=== PATIENT | male | born 1970 | race Caucasian/White ===

== ENCOUNTER 2016-11-15 23:24 | Emergency (ER) | payer SELFPAY ==
[~2016-11-15] VITALS: Ht 182.9 cm; Wt 75.0 kg
[~2016-11-15 23:24] MED LIST: ATENOLOL25 MG PO; CEPHALEXIN500 MG PO; ENALAPRIL5 MG PO; FLEXERIL OR; LIBRIUM10 MG PO; LORTAB 5 OR; LORTAB 7.5 PO; MEDDOSEPAK PO; MULT1 OR; NAPROSYN500 MG OR; NAPROSYN500 MG PO; NO; NO HOME MEDS; OMEPRAZOLE10 MG; OTC SLEEP AID; TRIMOX500 MG PO; ULTRAM50 MG OR; UNKNOWN BP MED; VITAMIN B-1100 M1 PO; [UNRECOGNIZED DRUG - OTHER] OR
[2016-11-16] MEDS ORDERED: ULTRAM50 M1 PO (00:46)
[2016-11-16 00:52] VITALS: BP 138/103
== END 2016-11-16 01:00 | disposition home or self-care (01) | DRG 563 ==
LOC: ED 23:24
PROC: 2W3RX1Z Immobilization of Left Lower Leg using Splint (ICD-10-PCS; principal; 2016-11-15)
DX: S82.55XA Nondisplaced fracture of medial malleolus of left tibia, initial encounter for closed fracture (principal); W22.09XA Striking against other stationary object, initial encounter; Y93.E6 Activity, residential relocation; Y92.89 Other specified places as the place of occurrence of the external cause

== ENCOUNTER 2016-11-19 10:42 | Emergency (ER) | payer SELFPAY ==
[~2016-11-19] VITALS: Ht 182.9 cm; Wt 70.0 kg
[~2016-11-19 10:42] MED LIST changes: +ULTRAM50 M1 PO
[2016-11-19 11:25] VITALS: BP 131/88
== END 2016-11-19 11:26 | disposition home or self-care (01) | DRG 561 ==
LOC: ED 10:42
DX: S82.55XD Nondisplaced fracture of medial malleolus of left tibia, subsequent encounter for closed fracture with routine healing (principal); Z91.19 Patient's noncompliance with other medical treatment and regimen; M25.472 Effusion, left ankle; W22.09XD Striking against other stationary object, subsequent encounter

== ENCOUNTER 2017-06-18 20:26 | Observation (INO) | payer SELFPAY ==
[~2017-06-18] VITALS: Ht 182.9 cm; Wt 75.2 kg
--- NOTE | 2017-06-18 20:45 | NUR ---
PT. AMBULATED TO ROOM 9 WITH C/O MIDSTERNAL CP X 3 DAYS. PT. STATES HE HAS NO PMH OF CAD.
[2017-06-18 21:04] LABS: HEMATOCRIT 43.5 % (39.0-50.0); HEMOGLOBIN 15.7 g/dl (14.0-18.0); IMMATURE GRANULOCYTES 0.3 % (0.0-1.0); MEAN CELL VOLUME 92.9 fL CALC (80.0-100.0); MEAN CORPUSCULAR HGB 33.5 pG CALC (26.0-32.0); MEAN CORPUSCULAR HGB CONC 36.1 g/L CALC (32.0-36.0); NEUT# 8.78 thou/uL (1.82-7.42); RED BLOOD COUNT 4.68 mill/uL (4.70-6.10); RED CELL DISTRI WIDTH 12.3 % (11.5-15.5)
[2017-06-18 21:18] LABS: ALBUMIN 4.9 g/dL (3.2-5.0); ALKALINE PHOSPHATASE 117 u/l (38-126); AMYLASE 67 u/l (30-110); ANION GAP 21 (6-22 (CALC)); BILIRUBIN, TOTAL 0.6 mg/dL (0.0-1.4); BUN 7 mg/dL (9-20); BUN/CREATININE RATIO 11 (12-20 (CALC)); CARBON DIOXIDE 20 mmol/l (22-30); CHLORIDE 103 mmol/l (95-108); CREATININE 0.6 mg/dL (0.7-1.3); GFR > 60 ML/MIN (>=60 (CALC)); GFR FOR AFR.AMER. > 60 ML/MIN (>=60 (CALC)); LIPASE 192 u/l (23-300); POTASSIUM 4.2 mmol/l (3.5-5.1); SGOT/AST 67 u/l (17-59); SGPT/ALT 47 u/l (21-72); SODIUM 140 mmol/l (137-146); TOTAL PROTEIN 7.9 g/dL (6.3-8.2)
--- NOTE | 2017-06-18 21:24 | NUR ---
LAB CALLED AND BAL 437. DR NOTIFIED
[2017-06-18 21:26] LABS: ACT PARTIAL THROMBO TIME 30.5 SECONDS (20.0-32.5); PROTHROMBIN TIME 10.6 SECONDS (9.0-12.5)
[2017-06-18 21:27] LABS: MYOGLOBIN 17 ng/mL (0 - 121)
--- NOTE | 2017-06-18 22:52 | NUR ---
PT RESTING COMFORTABLY AT THIS TIME. NO C/O PAIN OR PRESSURE. AWAITING ADMISSION ORDERS FROM ER
--- NOTE | 2017-06-18 23:23 | NUR ---
REPORT CALLED TO MANUEL RAY FOR ROOM 261.
--- NOTE | 2017-06-18 23:34 | NUR ---
PT BEING READIED FOR TRANSPORT UP TO ROOM. REPORT CALLED TO MANUEL RAY.
[2017-06-18 23:50] VITALS: BP 131/71
--- NOTE | 2017-06-18 23:50 | NUR ---
PT ARRIVED TO UNIT VIA STRETCHER WITH ER STAFF. AMBULATED TO BED INDEPENDENTLY. DENIES PAIN CURRENTLY. RESPIRATIONS EVEN AND UNLABORED. PT ALERT AND ORIENTED. ORIENTED TO ROOM AND CALL LIGHT SYSTEM. PLAN OF CARE DISCUSSED. PT ENCOURAGED TO VERBALIZE CONCERNS. STATES UNDERSTANDING. DECLINE NICOTINE PATCH THAT WAS OFFERED. TREMORS NOTED TO HANDS. SAFETY MEASURES IN PLACE. CALL LIGHT WITHIN REACH.
[2017-06-19 03:46] LABS: URINE BILIRUBIN - DIPSTICK NEGATIVE (NEGATIVE); URINE BLOOD DIPSTICK NEGATIVE (NEGATIVE); URINE CLARITY CLEAR; URINE COLOR YELLOW; URINE GLUCOSE - DIPSTICK NEGATIVE (NEGATIVE); URINE KETONE NEGATIVE (NEGATIVE); URINE LEUK ESTERASE NEGATIVE (NEGATIVE); URINE NITRITE - DIPSTICK NEGATIVE (Negative); URINE PROTEIN - DIPSTICK NEGATIVE (NEG-TRACE); URINE UROBILINOGEN - DIPSTICK 0.2 E.U./dL (0.2)
[2017-06-19 03:52] LABS: BARBITURATES NEGATIVE (NEGATIVE); COCAINE NEGATIVE (NEGATIVE); METHADONE NEGATIVE (NEGATIVE); OXCYCODONE NEGATIVE (NEGATIVE); TETRAHYDROCANNABIONOL NEGATIVE (NEGATIVE); TRICYLIC ANTIDEPRESSANTS NEGATIVE (NEGATIVE)
[2017-06-19 03:55] VITALS: BP 116/67
--- NOTE | 2017-06-19 04:00 | NUR ---
PT ASLEEP AT THIS TIME WITH NO SIGNS OF DISTRESS NOTED. RESPIRATIONS EVEN AND UNLABORED. LIBRIUM GIVEN FOR TREMORS AND SIGNS OF ALCOHOL WITHDRAWL. NO REQUESTS AT THIS TIME. PT INDEPENDENT IN ROOM. SAFETY MEASURES IN PLACE. CALL LIGHT WITHIN REACH.
--- NOTE | 2017-06-19 07:00 | NUR ---
SHIFT CHANGE REPORT FROM MANUEL, PT SLEEPING BUT AROUSES TO VERBAL STIMULI, DENIES PAIN AT THIS TIME BUT STATES HE WANTS A CIGARETTE CRYSTAL AND THAT HE WANTS TO GO HOME. DR TUBBS ROUNDED AND STATED HE WILL SENT PT HOME TODAY, WILL CONTINUE TO MONITOR.
[2017-06-19 08:09] VITALS: BP 141/82
[2017-06-19] MEDS ORDERED: PRILOSEC20 MG/CAP PO (10:25)
[2017-06-19] MEDS ORDERED: LIBRIUM25 M1 PO (10:25)
--- NOTE | 2017-06-19 11:15 | NUR ---
Discharge instructions given. Patient verbalizes understanding of same. Discharged in fair condition via Ambulatory to Home with *Other. All belongings sent with pt.
== END 2017-06-19 11:00 | disposition home or self-care (01) | DRG 313 ==
LOC: ED 20:26 → ED-I 22:53 → ED 23:15 → MS2 23:16
PROVIDERS: Emergency Medicine; ADMIT Internal Medicine; ATTEND Internal Medicine
DX: R07.2 Precordial pain (principal); F10.129 Alcohol abuse with intoxication, unspecified; F17.210 Nicotine dependence, cigarettes, uncomplicated; I10 Essential (primary) hypertension; G25.2 Other specified forms of tremor; Y90.8 Blood alcohol level of 240 mg/100 ml or more
CPT/HCPCS: G0378

== ENCOUNTER 2018-06-03 20:13 | Emergency (ER) | payer SELFPAY ==
[~2018-06-03] VITALS: Ht 182.9 cm; Wt 78.8 kg
[~2018-06-03 20:13] MED LIST changes: +LIBRIUM25 M1 PO; +PRILOSEC20 MG/CAP PO
[2018-06-03] MEDS ORDERED: LISINOPRIL2.5 MG PO (20:29)
[2018-06-03] MEDS ORDERED: BLOOD PRESSURE PILL (20:30)
[2018-06-03 20:44] LABS: HEMATOCRIT 42.9 % (39.0-50.0); HEMOGLOBIN 15.6 g/dl (14.0-18.0); IMMATURE GRANULOCYTES 0.4 % (0.0-5.0); MEAN CELL VOLUME 94.1 fL CALC (80.0-100.0); MEAN CORPUSCULAR HGB 34.2 pG CALC (26.0-32.0); MEAN CORPUSCULAR HGB CONC 36.4 g/L CALC (32.0-36.0); NEUT# 5.52 thou/uL (1.82-7.42); RED BLOOD COUNT 4.56 mill/uL (4.70-6.10); RED CELL DISTRI WIDTH 12.2 % (11.5-15.5)
[2018-06-03 20:57] LABS: ALBUMIN 4.8 g/dL (3.2-5.0); ALKALINE PHOSPHATASE 86 u/l (38-126); BILIRUBIN, TOTAL 1.1 mg/dL (0.0-1.4); BUN 4 mg/dL (9-20); BUN/CREATININE RATIO 7 (12-20 (CALC)); CARBON DIOXIDE 21 mmol/l (22-30); CHLORIDE 95 mmol/l (95-108); CREATININE 0.5 mg/dL (0.7-1.3); GFR > 60 ML/MIN (>=60 (CALC)); GFR FOR AFR.AMER. > 60 ML/MIN (>=60 (CALC)); POTASSIUM 4.2 mmol/l (3.5-5.1); SGOT/AST 64 u/l (17-59); TOTAL PROTEIN 7.9 g/dL (6.3-8.2)
[2018-06-03 21:05] LABS: ANION GAP 19 (6-22 (CALC)); SODIUM 131 mmol/l (137-146)
[2018-06-03] MEDS ORDERED: LISINOPRIL10 M1 PO (21:23)
[2018-06-03] MEDS ORDERED: AMLODIPINE BESY10 MG PO (21:24)
[2018-06-03 21:46] LABS: URINE BILIRUBIN - DIPSTICK NEGATIVE (NEGATIVE); URINE BLOOD DIPSTICK NEGATIVE (NEGATIVE); URINE COLOR YELLOW; URINE GLUCOSE - DIPSTICK NEGATIVE (NEGATIVE); URINE KETONE NEGATIVE (NEGATIVE); URINE LEUK ESTERASE NEGATIVE (NEGATIVE); URINE NITRITE - DIPSTICK NEGATIVE (Negative); URINE PH 6.5 (4.5-8.0); URINE PROTEIN - DIPSTICK NEGATIVE (NEG-TRACE); URINE SPECIFIC GRAVITY <=1.005; URINE UROBILINOGEN - DIPSTICK 0.2 E.U./dL (0.2)
[2018-06-04 00:14] VITALS: BP 140/70
== END 2018-06-04 | disposition left against medical advice (07) | DRG 916 ==
LOC: ED 20:13
PROVIDERS: Emergency Medicine
DX: T78.3XXA Angioneurotic edema, initial encounter (principal); F17.200 Nicotine dependence, unspecified, uncomplicated; Z91.19 Patient's noncompliance with other medical treatment and regimen

== ENCOUNTER 2019-11-20 01:47 | Emergency (ER) | payer SELFPAY ==
[~2019-11-20] VITALS: Ht 182.9 cm; Wt 80.0 kg
[~2019-11-20 01:47] MED LIST changes: +AMLODIPINE BESY10 MG PO; +BLOOD PRESSURE PILL; +LISINOPRIL10 M1 PO; +LISINOPRIL2.5 MG PO
[2019-11-20 02:40] LABS: HEMATOCRIT 40.5 % (39.0-50.0); HEMOGLOBIN 13.9 g/dl (14.0-18.0); IMMATURE GRANULOCYTES 0.2 % (0.0-5.0); MEAN CORPUSCULAR HGB 34.2 pG CALC (26.0-32.0); MEAN CORPUSCULAR HGB CONC 34.3 g/dL CAL (32.0-36.0); NEUT# 3.14 thou/uL (1.82-7.42); RED BLOOD COUNT 4.06 mill/uL (4.70-6.10); RED CELL DISTRI WIDTH 13.6 % (11.5-15.5)
[2019-11-20 02:42] LABS: MEAN CELL VOLUME 99.8 fL CALC (80.0-100.0)
[2019-11-20 02:50] LABS: ALBUMIN 4.5 g/dL (3.2-5.0); ALKALINE PHOSPHATASE 95 u/l (38-126); ANION GAP 14 (6-22 (CALC)); BUN 9 mg/dL (9-20); BUN/CREATININE RATIO 14 (12-20 (CALC)); CARBON DIOXIDE 22 mmol/l (22-30); CHLORIDE 103 mmol/l (95-108); CREATININE 0.6 mg/dL (0.7-1.3); GFR > 60 ML/MIN (>=60 (CALC)); GFR FOR AFR.AMER. > 60 ML/MIN (>=60 (CALC)); POTASSIUM 3.9 mmol/l (3.5-5.1); SODIUM 135 mmol/l (137-146); TOTAL PROTEIN 7.1 g/dL (6.3-8.2)
[2019-11-20 02:56] LABS: BILIRUBIN, TOTAL 0.6 mg/dL (0.0-1.4); SGOT/AST 124 u/l (17-59)
[2019-11-20 02:57] LABS: ETHYL ALCOHOL > 300 mg/dl (0-30)
[2019-11-20 03:13] LABS: URINE BILIRUBIN - DIPSTICK NEGATIVE (NEGATIVE); URINE BLOOD DIPSTICK NEGATIVE (NEGATIVE); URINE COLOR YELLOW; URINE GLUCOSE - DIPSTICK NEGATIVE (NEGATIVE); URINE KETONE TRACE mg/dL (NEGATIVE); URINE LEUK ESTERASE NEGATIVE (NEGATIVE); URINE NITRITE - DIPSTICK NEGATIVE (Negative); URINE PROTEIN - DIPSTICK NEGATIVE (NEG-TRACE); URINE SPECIFIC GRAVITY 1.015; URINE UROBILINOGEN - DIPSTICK 0.2 E.U./dL (0.2)
[2019-11-20 04:15] VITALS: BP 106/72
== END 2019-11-20 04:11 | disposition home or self-care (01) | DRG 93 ==
LOC: ED 01:47
PROVIDERS: Emergency Medicine
DX: R20.2 Paresthesia of skin (principal); F10.129 Alcohol abuse with intoxication, unspecified; I10 Essential (primary) hypertension; F17.210 Nicotine dependence, cigarettes, uncomplicated

== ENCOUNTER 2020-05-04 21:43 | Observation (INO) | payer SELFPAY ==
[~2020-05-04] VITALS: Ht 177.8 cm; Wt 75.0 kg
--- NOTE | 2020-05-04 22:00 | NUR ---
ARRIVED VIA EMS C/O PAIN. NAD. PWD. RESP EASY REG. VSS.
[2020-05-04 22:45] LABS: HEMATOCRIT 43.4 % (39.0-50.0); HEMOGLOBIN 14.9 g/dl (14.0-18.0); IMMATURE GRANULOCYTES 0.3 % (0.0-5.0); MEAN CELL VOLUME 98.6 fL CALC (80.0-100.0); MEAN CORPUSCULAR HGB 33.9 pG CALC (26.0-32.0); MEAN CORPUSCULAR HGB CONC 34.3 g/dL CAL (32.0-36.0); NEUT# 4.8 thou/uL (1.82-7.42); RED BLOOD COUNT 4.4 mill/uL (4.70-6.10); RED CELL DISTRI WIDTH 11.6 % (11.5-15.5)
[2020-05-04] MEDS ORDERED: ANTIDEPRESSANT (22:49)
[2020-05-04] MEDS ORDERED: ANTIHYPERTENSIVE (22:50)
--- NOTE | 2020-05-04 23:00 | NUR ---
Notified MD in regards to PT blood pressure. Agreed to hold nitro. Will continue to monitor. Lyric Mansfield RN
[2020-05-04 23:02] LABS: ALBUMIN 4.4 g/dL (3.2-5.0); ALKALINE PHOSPHATASE 94 u/l (38-126); AMYLASE 81 u/l (30-110); BUN 3 mg/dL (9-20); BUN/CREATININE RATIO 6 (12-20 (CALC)); CHLORIDE 103 mmol/l (95-108); CREATININE 0.5 mg/dL (0.7-1.3); GFR > 60 ML/MIN (>=60 (CALC)); GFR FOR AFR.AMER. > 60 ML/MIN (>=60 (CALC)); LIPASE 171 u/l (23-300); POTASSIUM 4.2 mmol/l (3.5-5.1); SGOT/AST 53 u/l (17-59); SODIUM 139 mmol/l (137-146); TOTAL PROTEIN 7.7 g/dL (6.3-8.2)
[2020-05-04 23:03] LABS: INTERNATIONAL NORMALIZED RATIO 1.2 RATIO (0.7-1.3); PROTHROMBIN TIME 11.5 SECONDS (9.0-12.5)
[2020-05-04 23:04] LABS: ANION GAP 13 (6-22 (CALC)); BILIRUBIN, TOTAL 0.3 mg/dL (0.0-1.4); CARBON DIOXIDE 27 mmol/l (22-30)
[2020-05-04 23:14] LABS: MYOGLOBIN 28 ng/mL (0 - 121)
[2020-05-05 03:24] LABS: URINE BILIRUBIN - DIPSTICK NEGATIVE (NEGATIVE); URINE BLOOD DIPSTICK NEGATIVE (NEGATIVE); URINE COLOR YELLOW; URINE GLUCOSE - DIPSTICK NEGATIVE (NEGATIVE); URINE KETONE NEGATIVE (NEGATIVE); URINE LEUK ESTERASE NEGATIVE (NEGATIVE); URINE NITRITE - DIPSTICK NEGATIVE (Negative); URINE PROTEIN - DIPSTICK NEGATIVE (NEG-TRACE); URINE SPECIFIC GRAVITY <=1.005; URINE UROBILINOGEN - DIPSTICK 0.2 E.U./dL (0.2)
--- NOTE | 2020-05-05 06:50 | NUR ---
REPORT TO CORY PILLAI
--- NOTE | 2020-05-05 07:00 | NUR ---
REPORT RECEIVED FROM CORY MOON.
--- NOTE | 2020-05-05 07:45 | NUR ---
[facility] DEPT NOTIFIED OF PT LEAVING AMA AND REASON FOR BEING HERE ETOH PER MD REQUEST. PT LEFT AND STAFF UNABLE TO LOCATE ON PROPERTY AFTER DETERMINED LAB WORK RESULTS WERE NOT BACK, PT WAS AMBULATING WITH STRONG STEADY GAIT AND WAS ALERT AND ORIENTED AT TIME OF LEAVING FACILITY.
[2020-05-05 08:08] VITALS: BP 116/76
[2020-05-05 08:28] VITALS: BP 116/76
--- NOTE | 2020-05-05 08:28 | NUR ---
0745-ADMISSION ASSESSMENT COMPLETED. PT ALERT AND ORIENTED X 4. STATES HE WANTS TO LEAVE NOW. ALLOWED LAB TO DRAW BLOOD AND ADMISSION TO BE COMPLETED. STATES THAT HE WILL NOT WAIT FOR THE DR. 0823-PT ALLOWS IV TO BE REMOVED; CATH TIP INTACT. LEFT AGAINST MEDICAL ADVICE; AMBULATORY WITH STEADY GAIT. RISKS OF LEAVING REVIEWED AND PT STATES HIS UNDERSTANDING.
--- NOTE | 2020-05-05 08:30 | NUR ---
[facility] DEPT NOTIFIED OF PT LEAVING AMA AND REASON FOR BEING HERE ETOH PER MD REQUEST. PT LEFT AND STAFF UNABLE TO LOCATE ON PROPERTY AFTER DETERMINED LAB WORK RESULTS WERE NOT BACK, PT WAS AMBULATING WITH STRONG STEADY GAIT AND WAS ALERT AND ORIENTED AT TIME OF LEAVING FACILITY.
[2020-05-05] MEDS ORDERED: LISINOPRIL5 MG PO (09:44)
[2020-05-05] MEDS ORDERED: CITALOPRAM40 M1 PO (09:44)
[2020-05-05] MEDS ORDERED: MECLIZINE25 MG PO (09:45)
== END 2020-05-05 08:30 | disposition left against medical advice (07) | DRG 313 ==
LOC: ED 21:43 → ED-I 23:47 → ED 05-05 00:14 → ED-I 05-05 00:15
PROVIDERS: Emergency Medicine; ADMIT Internal Medicine; ATTEND Internal Medicine
DX: R07.9 Chest pain, unspecified (principal); F10.129 Alcohol abuse with intoxication, unspecified; I10 Essential (primary) hypertension; F17.200 Nicotine dependence, unspecified, uncomplicated; Z20.828 Contact with and (suspected) exposure to other viral communicable diseases

== ENCOUNTER 2020-08-22 | Observation (INO) | payer SELFPAY ==
[~2020-08-22] MED LIST changes: +ANTIDEPRESSANT; +ANTIHYPERTENSIVE; +CITALOPRAM40 M1 PO; +LISINOPRIL5 MG PO; +MECLIZINE25 MG PO
[2020-08-22 16:18] LABS: IMMATURE GRANULOCYTES 0.4 % (0.0-5.0); MEAN CELL VOLUME 100.8 fL CALC (80.0-100.0); MEAN CORPUSCULAR HGB 34.8 pG CALC (26.0-32.0); MEAN CORPUSCULAR HGB CONC 34.5 g/dL CAL (32.0-36.0); NEUT# 4.71 thou/uL (1.82-7.42); RED BLOOD COUNT 3.59 mill/uL (4.70-6.10); RED CELL DISTRI WIDTH 12.6 % (11.5-15.5)
[2020-08-22 16:28] LABS: HEMATOCRIT 36.2 % (39.0-50.0); HEMOGLOBIN 12.5 g/dl (14.0-18.0)
[2020-08-22 16:50] LABS: ALBUMIN 4.6 g/dL (3.2-5.0); BUN 5 mg/dL (9-20); BUN/CREATININE RATIO 5 (12-20 (CALC)); CHLORIDE 104 mmol/l (95-108); GFR > 60 ML/MIN (>=60 (CALC)); GFR FOR AFR.AMER. > 60 ML/MIN (>=60 (CALC)); POTASSIUM 3.9 mmol/l (3.5-5.1); SODIUM 137 mmol/l (137-146); TOTAL PROTEIN 8.3 g/dL (6.3-8.2)
[2020-08-22 16:55] LABS: ALKALINE PHOSPHATASE 176 u/l (38-126); ANION GAP 17 (6-22 (CALC)); BILIRUBIN, TOTAL 0.8 mg/dL (0.0-1.4); CARBON DIOXIDE 20 mmol/l (22-30); SGOT/AST 160 u/l (17-59)
[2020-08-22 17:01] LABS: MYOGLOBIN 116 ng/mL (0 - 121)
[2020-08-22] MEDS ORDERED: LISINOPRIL10 MG PO (19:07)
[2020-08-22] MEDS ORDERED: NORVASC5 M1 PO (19:08)
[2020-08-22 19:36] LABS: URINE BILIRUBIN - DIPSTICK NEGATIVE (NEGATIVE); URINE BLOOD DIPSTICK NEGATIVE (NEGATIVE); URINE COLOR YELLOW; URINE GLUCOSE - DIPSTICK NEGATIVE (NEGATIVE); URINE KETONE NEGATIVE (NEGATIVE); URINE LEUK ESTERASE NEGATIVE (NEGATIVE); URINE PROTEIN - DIPSTICK NEGATIVE (NEG-TRACE); URINE UROBILINOGEN - DIPSTICK 0.2 E.U./dL (0.2)
[2020-08-22 19:37] LABS: URINE NITRITE - DIPSTICK NEGATIVE (Negative)
[2020-08-23] VITALS (8 sets, daily range): BP systolic 126–157; BP diastolic 76–99
[2020-08-23 07:12] LABS: HEMATOCRIT 38.4 % (39.0-50.0); HEMOGLOBIN 12.9 g/dl (14.0-18.0); IMMATURE GRANULOCYTES 0.3 % (0.0-5.0); MEAN CELL VOLUME 101.6 fL CALC (80.0-100.0); MEAN CORPUSCULAR HGB 34.1 pG CALC (26.0-32.0); MEAN CORPUSCULAR HGB CONC 33.6 g/dL CAL (32.0-36.0); NEUT# 4.41 thou/uL (1.82-7.42); RED BLOOD COUNT 3.78 mill/uL (4.70-6.10); RED CELL DISTRI WIDTH 12.6 % (11.5-15.5)
[2020-08-23 07:35] LABS: ALBUMIN 3.8 g/dL (3.2-5.0); ALKALINE PHOSPHATASE 142 u/l (38-126); ANION GAP 13 (6-22 (CALC)); BUN 3 mg/dL (9-20); BUN/CREATININE RATIO 8 (12-20 (CALC)); CALCULATED LDLCHOLESTEROL 68 mg/dL (62-129 (CALC)); CARBON DIOXIDE 21 mmol/l (22-30); CHLORIDE 104 mmol/l (95-108); CHOLESTEROL HDL RATIO 2.3 (<4.4 (CALC)); CREATININE 0.4 mg/dL (0.7-1.3); GFR > 60 ML/MIN (>=60 (CALC)); GFR FOR AFR.AMER. > 60 ML/MIN (>=60 (CALC)); HDL CHOLESTEROL 63 mg/dL (>=40); MAGNESIUM 1.3 mg/dL (1.6-2.3); POTASSIUM 3.6 mmol/l (3.5-5.1); SGOT/AST 120 u/l (17-59); SODIUM 134 mmol/l (137-146); TOTAL CHOLESTEROL 145 mg/dl (0-199); TOTAL PROTEIN 6.9 g/dL (6.3-8.2); TOTAL TRIGLYCERIDES 69 mg/dl (30-149); VLDL CHOLESTROL 14 mg/dl (8-62 (CALC))
[2020-08-23 07:36] LABS: BILIRUBIN, TOTAL 1.2 mg/dL (0.0-1.4)
[2020-08-23] MEDS ORDERED: TRAMADOL HCL50 MG PO (11:48)
[2020-08-23] MEDS ORDERED: LIBRIUM25 M1 PO (11:48)
== END 2020-08-23 12:25 | disposition home or self-care (01) | DRG 312 ==
PROVIDERS: Emergency Medicine; Nurse Practitioner; ADMIT Internal Medicine
PROC: 2W3BXYZ Immobilization of Left Upper Arm using Other Device (ICD-10-PCS; principal; 2020-08-23)
DX: R55 Syncope and collapse (principal); F10.239 Alcohol dependence with withdrawal, unspecified; F10.229 Alcohol dependence with intoxication, unspecified; S42.035A Nondisplaced fracture of lateral end of left clavicle, initial encounter for closed fracture; R79.89 Other specified abnormal findings of blood chemistry; I10 Essential (primary) hypertension; J44.9 Chronic obstructive pulmonary disease, unspecified; F32.9 Major depressive disorder, single episode, unspecified; F17.210 Nicotine dependence, cigarettes, uncomplicated; W19.XXXA Unspecified fall, initial encounter; Y90.8 Blood alcohol level of 240 mg/100 ml or more; Z20.822 Contact with and (suspected) exposure to COVID-19
CPT/HCPCS: G0378; J1650; J2060

== ENCOUNTER 2020-08-25 23:25 | Observation (INO) | payer SELFPAY ==
[~2020-08-25] VITALS: Ht 177.8 cm; Wt 65.0 kg
[~2020-08-25 23:25] MED LIST changes: +LISINOPRIL10 MG PO; +NORVASC5 M1 PO; +TRAMADOL HCL50 MG PO
[2020-08-25 23:59] LABS: HEMATOCRIT 36.7 % (39.0-50.0); HEMOGLOBIN 12.3 g/dl (14.0-18.0); IMMATURE GRANULOCYTES 0.8 % (0.0-5.0); MEAN CELL VOLUME 102.5 fL CALC (80.0-100.0); MEAN CORPUSCULAR HGB 34.4 pG CALC (26.0-32.0); MEAN CORPUSCULAR HGB CONC 33.5 g/dL CAL (32.0-36.0); NEUT# 5.12 thou/uL (1.82-7.42); RED BLOOD COUNT 3.58 mill/uL (4.70-6.10); RED CELL DISTRI WIDTH 12.4 % (11.5-15.5)
[2020-08-26 00:05] LABS: ALBUMIN 4.2 g/dL (3.2-5.0); ALKALINE PHOSPHATASE 116 u/l (38-126); ANION GAP 19 (6-22 (CALC)); BILIRUBIN, TOTAL 0.9 mg/dL (0.0-1.4); BUN 5 mg/dL (9-20); BUN/CREATININE RATIO 3 (12-20 (CALC)); CARBON DIOXIDE 19 mmol/l (22-30); CHLORIDE 98 mmol/l (95-108); CREATININE 1.3 mg/dL (0.7-1.3); GFR 58 ML/MIN (>=60 (CALC)); GFR FOR AFR.AMER. > 60 ML/MIN (>=60 (CALC)); POTASSIUM 3.3 mmol/l (3.5-5.1); SGOT/AST 83 u/l (17-59); SODIUM 133 mmol/l (137-146); TOTAL PROTEIN 7.6 g/dL (6.3-8.2)
[2020-08-26 00:17] LABS: INTERNATIONAL NORMALIZED RATIO 1.2 RATIO (0.7-1.3); PROTHROMBIN TIME 11.8 SECONDS (9.0-12.5)
--- NOTE | 2020-08-26 00:48 | NUR ---
PT BROUGHT IN BLS BY EMS AND PT IS COVERED IN FECES. PT WAS CLEANED UP WITH TOTAL NURSING ASSISTANCE
--- NOTE | 2020-08-26 02:30 | NUR ---
PT STS THAT HE IS HUNGRY - HAVING NOT EATEN IN THE PAST 24+ HRS AND NEEDS FOOD. PT HAS MILD TREMORS BUT IS COHERENT AND COOPERATIVE
[2020-08-26 03:08] LABS: URINE BILIRUBIN - DIPSTICK NEGATIVE (NEGATIVE); URINE BLOOD DIPSTICK NEGATIVE (NEGATIVE); URINE COLOR YELLOW; URINE GLUCOSE - DIPSTICK NEGATIVE (NEGATIVE); URINE KETONE TRACE mg/dL (NEGATIVE); URINE LEUK ESTERASE NEGATIVE (NEGATIVE); URINE PH 6.5 (4.5-8.0); URINE PROTEIN - DIPSTICK NEGATIVE (NEG-TRACE); URINE SPECIFIC GRAVITY 1.015
[2020-08-26 03:10] LABS: URINE NITRITE - DIPSTICK NEGATIVE (Negative)
--- NOTE | 2020-08-26 04:18 | NUR ---
PT CLEARED TO HAVE SOFT OR SIMPLE FOOD CHOICES SUCH APPLESAUCE OR PUDDING. PT PROVIDED WITH BOTH AND JUICE.
--- NOTE | 2020-08-26 05:35 | NUR ---
PT IS STARTING TO BECOME VERY AGITATED AND TREMULOUS. NOTIFIED AND ATIVAN 2 MG GIVEN IV. SPOKE WITH RE: PT CONDITION AND CIWA SCORING IMPLEMENTED.
--- NOTE | 2020-08-26 07:00 | NUR ---
REPORT RECEIVED. PT RESTING ON STRETCHER.
--- NOTE | 2020-08-26 07:10 | NUR ---
REPORT RECEIVED. FIRST CONTACT WITH PT. SITTING IN STRETCHER AWAKE AND ALERT X3. TREMORS NOTED. PT DEMEANOR CALM AND APPROPRIATE. VITAL SIGNS STABLE.
[2020-08-26 07:34] VITALS: BP 156/90
--- NOTE | 2020-08-26 08:00 | NUR ---
ASSISTED WITH URINAL AND RETURNED TO BED. MILD TREMORS NOTED.
--- NOTE | 2020-08-26 09:04 | NUR ---
PT RESTING IN BED WITH EYES CLOSED. PT AROUSES TO VERBAL STIMULI. QADMISSION ASSESSMENT COMPLETED AT THIS TIME. IV PATENT X1. PT IS ALERT AND ORIENTED X2. PT STATES THAT IT IS YEAR 2021. REORIENTATION SUCCESSFUL HOWEVER. PLAN OF CAR DISCUSSED WITH PATIENT. PT VERBLAIZED WITH PATIENT. CALL LIGHT IN REACH. WILL CONTINUE TO MONITOR.
[2020-08-26 09:06] VITALS: BP 156/90
--- NOTE | 2020-08-26 09:20 | NUR ---
DR ROMI VELAZQUEZ AT [facility] AT THIS TIME
--- NOTE | 2020-08-26 10:00 | NUR ---
RESTING ON STRETCHER. TREMORS NOTED. ATIVAN ADMINISTERED ORDERED.
--- NOTE | 2020-08-26 12:00 | NUR ---
BANANA BAG INFUSING ORDERED. PT SITTING AT STRETCHER SIDE EATING.
--- NOTE | 2020-08-26 12:58 | NUR ---
DC INSTRUCTIONS GIVEN. UNABLE TO SIGN DUE TO SHAKES. TWO RN'S SIGNED. ALL CONCERNS ADDRESSED. ESCORTED OUT VIA WHEELCHAIR IN STABLE CONDITION.
[2020-08-26 13:02] VITALS: BP 143/86
== END 2020-08-26 12:58 | disposition home or self-care (01) | DRG 315 ==
LOC: ED 23:25 → ED-I 08-26 04:22 → ED 08-26 05:33 → ED-I 08-26 05:34
PROVIDERS: Emergency Medicine; ADMIT Internal Medicine; ATTEND Internal Medicine
DX: I95.9 Hypotension, unspecified (principal); F10.239 Alcohol dependence with withdrawal, unspecified; R64 Cachexia; F10.229 Alcohol dependence with intoxication, unspecified; I10 Essential (primary) hypertension; J44.9 Chronic obstructive pulmonary disease, unspecified; F32.9 Major depressive disorder, single episode, unspecified; F17.200 Nicotine dependence, unspecified, uncomplicated; S42.034A Nondisplaced fracture of lateral end of right clavicle, initial encounter for closed fracture; W19.XXXA Unspecified fall, initial encounter; S42.002D Fracture of unspecified part of left clavicle, subsequent encounter for fracture with routine healing; X58.XXXD Exposure to other specified factors, subsequent encounter; Y90.6 Blood alcohol level of 120-199 mg/100 ml; Z20.822 Contact with and (suspected) exposure to COVID-19
CPT/HCPCS: J2060

== ENCOUNTER 2022-02-26 12:56 | Emergency (ER) | payer SELFPAY ==
[~2022-02-26] VITALS: Ht 177.8 cm; Wt 70.5 kg
[2022-02-26 14:14] LABS: MEAN CORPUSCULAR HGB 32.5 pG CALC (26.0-32.0); NEUT# 2.24 thou/uL (1.82-7.42); RED BLOOD COUNT 5.01 mill/uL (4.70-6.10)
[2022-02-26 14:30] LABS: HEMATOCRIT 46.6 % (39.0-50.0); HEMOGLOBIN 16.3 g/dl (14.0-18.0)
[2022-02-26 14:40] VITALS: BP 128/89
[2022-02-26 14:51] LABS: ALBUMIN 4.1 g/dL (3.2-5.0); ALKALINE PHOSPHATASE 106 u/l (38-126); BUN 2 mg/dL (9-20); BUN/CREATININE RATIO 4 (12-20 (CALC)); CHLORIDE 98 mmol/l (95-108); CREATININE 0.5 mg/dL (0.7-1.3); GFR FOR AFR.AMER. > 60 ML/MIN (>=60 (CALC)); GFR OTHER RACES > 60 ML/MIN (>=60 (CALC)); SGOT/AST 53 u/l (17-59); SODIUM 135 mmol/l (137-146); TOTAL PROTEIN 6.7 g/dL (6.3-8.2)
[2022-02-26 14:52] LABS: ANION GAP 17 (6-22 (CALC)); BILIRUBIN, TOTAL 0.5 mg/dL (0.0-1.4); CARBON DIOXIDE 24 mmol/l (22-30)
== END 2022-02-26 16:28 | disposition home or self-care (01) | DRG 552 ==
LOC: ED 12:56
PROVIDERS: Family Medicine
DX: M54.2 Cervicalgia (principal); J02.9 Acute pharyngitis, unspecified
CPT/HCPCS: Q9967

== ENCOUNTER 2022-05-15 13:30 | Emergency (ER) | payer SELFPAY ==
[2022-05-15] VITALS (14 sets, daily range): BP systolic 83–140; BP diastolic 40–75
[~2022-05-15] VITALS: Ht 177.8 cm; Wt 82.0 kg
[2022-05-15 14:15] LABS: BASO% 0.4 % (0-3); EOS% 1.1 % (0-8); HEMATOCRIT 43.7 % (39.0-50.0); HEMOGLOBIN 15.5 g/dl (14.0-18.0); IMMATURE GRANULOCYTES 0.1 % (0.0-5.0); LYMPH% 54.7 % (15-41); MEAN CELL VOLUME 93.4 fL CALC (80.0-100.0); MEAN CORPUSCULAR HGB 33.1 pG CALC (26.0-32.0); MEAN CORPUSCULAR HGB CONC 35.5 g/dL CAL (32.0-36.0); MONO% 7.3 % (2-13); NEUT# 3.52 thou/uL (1.82-7.42); NEUT% 36.4 % (42-76); RED BLOOD COUNT 4.68 mill/uL (4.70-6.10); RED CELL DISTRI WIDTH 12.8 % (11.5-15.5)
[2022-05-15 14:43] LABS: ALBUMIN 4.1 g/dL (3.2-5.0); ALKALINE PHOSPHATASE 132 u/l (38-126); ANION GAP 14 (6-22 (CALC)); BILIRUBIN, TOTAL 0.3 mg/dL (0.0-1.4); BUN 7 mg/dL (9-20); BUN/CREATININE RATIO 11 (12-20 (CALC)); CARBON DIOXIDE 23 mmol/l (22-30); CHLORIDE 105 mmol/l (95-108); CREATININE 0.7 mg/dL (0.7-1.3); GFR FOR AFR.AMER. > 60 ML/MIN (>=60 (CALC)); GFR OTHER RACES > 60 ML/MIN (>=60 (CALC)); POTASSIUM 4.1 mmol/l (3.5-5.1); SGOT/AST 40 u/l (17-59); SODIUM 137 mmol/l (137-146)
[2022-05-15] MEDS ORDERED: PREDNISONE50 MG PO (16:44)
[2022-05-15] MEDS ORDERED: EPIPEN 2-P0.3 MG/0.3 IM (16:44)
== END 2022-05-15 17:00 | disposition left against medical advice (07) | DRG 918 ==
LOC: ED 13:30
PROVIDERS: Family Medicine
DX: T63.461A Toxic effect of venom of wasps, accidental (unintentional), initial encounter (principal); R13.10 Dysphagia, unspecified

== ENCOUNTER 2022-06-19 08:13 | Emergency (ER) | payer SELFPAY ==
[~2022-06-19] VITALS: Ht 177.8 cm; Wt 70.4 kg
[~2022-06-19 08:13] MED LIST changes: +EPIPEN 2-P0.3 MG/0.3 IM; +PREDNISONE50 MG PO
[2022-06-19 09:14] LABS: BASO% 0.6 % (0-3); EOS% 1.8 % (0-8); HEMATOCRIT 42.1 % (39.0-50.0); HEMOGLOBIN 14.6 g/dl (14.0-18.0); IMMATURE GRANULOCYTES 0.6 % (0.0-5.0); LYMPH% 26.1 % (15-41); MEAN CELL VOLUME 92.9 fL CALC (80.0-100.0); MEAN CORPUSCULAR HGB 32.2 pG CALC (26.0-32.0); MEAN CORPUSCULAR HGB CONC 34.7 g/dL CAL (32.0-36.0); NEUT# 4.97 thou/uL (1.82-7.42); NEUT% 57.9 % (42-76); RED BLOOD COUNT 4.53 mill/uL (4.70-6.10); RED CELL DISTRI WIDTH 12.9 % (11.5-15.5)
[2022-06-19 09:27] LABS: ALBUMIN 3.8 g/dL (3.2-5.0); ALKALINE PHOSPHATASE 102 u/l (38-126); ANION GAP 12 (6-22 (CALC)); BILIRUBIN, TOTAL 0.4 mg/dL (0.2-1.3); CARBON DIOXIDE 27 mmol/l (22-30); CHLORIDE 93 mmol/l (95-108); CREATININE 0.5 mg/dL (0.7-1.3); GFR FOR AFR.AMER. > 60 ML/MIN (>=60 (CALC)); GFR OTHER RACES > 60 ML/MIN (>=60 (CALC)); SGOT/AST 32 u/l (17-59); TOTAL PROTEIN 6.9 g/dL (6.3-8.2)
[2022-06-19 09:28] LABS: BUN < 2 mg/dL (9-20); SODIUM 128 mmol/l (137-146)
[2022-06-19 09:40] LABS: ACT PARTIAL THROMBO TIME 29.5 SECONDS (20.0-32.5); INTERNATIONAL NORMALIZED RATIO 1.2 RATIO (0.7-1.3); PROTHROMBIN TIME 11.6 SECONDS (9.0-12.5)
[2022-06-19 11:31] VITALS: BP 162/94
[2022-06-19 12:00] VITALS: BP 164/98
[2022-06-19 12:30] VITALS: BP 171/104
[2022-06-19 13:00] VITALS: BP 160/100
[2022-06-19 14:00] VITALS: BP 165/94
== END 2022-06-19 14:00 | disposition left against medical advice (07) | DRG 204 ==
LOC: ED 08:13
PROVIDERS: Emergency Medicine
DX: R04.2 Hemoptysis (principal); J44.9 Chronic obstructive pulmonary disease, unspecified; F17.200 Nicotine dependence, unspecified, uncomplicated; I10 Essential (primary) hypertension; F32.A Depression, unspecified
CPT/HCPCS: Q9967

== ENCOUNTER 2022-06-22 12:54 | Emergency (ER) | payer SELFPAY ==
[~2022-06-22] VITALS: Ht 177.8 cm; Wt 63.6 kg
[2022-06-22] VITALS (19 sets, daily range): BP systolic 138–171; BP diastolic 88–112
[2022-06-22 16:45] LABS: BASO% 0.4 % (0-3); EOS% 1.2 % (0-8); HEMATOCRIT 42.9 % (39.0-50.0); HEMOGLOBIN 14.8 g/dl (14.0-18.0); IMMATURE GRANULOCYTES 0.3 % (0.0-5.0); MEAN CELL VOLUME 92.5 fL CALC (80.0-100.0); MEAN CORPUSCULAR HGB 31.9 pG CALC (26.0-32.0); MEAN CORPUSCULAR HGB CONC 34.5 g/dL CAL (32.0-36.0); NEUT# 5.61 thou/uL (1.82-7.42); NEUT% 63.1 % (42-76); RED BLOOD COUNT 4.64 mill/uL (4.70-6.10); RED CELL DISTRI WIDTH 12.5 % (11.5-15.5)
[2022-06-22 17:06] LABS: ALBUMIN 3.7 g/dL (3.2-5.0); ALKALINE PHOSPHATASE 92 u/l (38-126); BILIRUBIN, TOTAL 0.5 mg/dL (0.2-1.3); CARBON DIOXIDE 27 mmol/l (22-30); CHLORIDE 93 mmol/l (95-108); CREATININE 0.5 mg/dL (0.7-1.3); GFR FOR AFR.AMER. > 60 ML/MIN (>=60 (CALC)); GFR OTHER RACES > 60 ML/MIN (>=60 (CALC)); SGOT/AST 27 u/l (17-59); SODIUM 127 mmol/l (137-146); TOTAL PROTEIN 6.5 g/dL (6.3-8.2)
[2022-06-22 17:07] LABS: INTERNATIONAL NORMALIZED RATIO 1.2 RATIO (0.7-1.3); PROTHROMBIN TIME 11.6 SECONDS (9.0-12.5)
[2022-06-22 17:08] LABS: ANION GAP 11 (6-22 (CALC)); POTASSIUM 3.9 mmol/l (3.5-5.1)
[2022-06-22 17:09] LABS: BUN 2 mg/dL (9-20); BUN/CREATININE RATIO 4 (12-20 (CALC))
[2022-06-22] MEDS ORDERED: TRAMADOL HCL50 MG PO (21:06)
[2022-06-22] MEDS ORDERED: AMOX/K CLAV875 M1 PO (21:06)
== END 2022-06-22 21:59 | disposition home or self-care (01) | DRG 204 ==
LOC: ED 12:54
PROVIDERS: Emergency Medicine
DX: R04.2 Hemoptysis (principal); R22.1 Localized swelling, mass and lump, neck; Z20.822 Contact with and (suspected) exposure to COVID-19; F17.200 Nicotine dependence, unspecified, uncomplicated; I10 Essential (primary) hypertension; J44.9 Chronic obstructive pulmonary disease, unspecified; F32.A Depression, unspecified
CPT/HCPCS: S0164

== ENCOUNTER 2022-08-06 16:21 | Emergency (ER) | payer SELFPAY ==
[~2022-08-06] VITALS: Ht 177.8 cm; Wt 58.8 kg
[2022-08-06] VITALS (8 sets, daily range): BP systolic 89–119; BP diastolic 58–78
[~2022-08-06 16:21] MED LIST changes: +AMOX/K CLAV875 M1 PO
== END 2022-08-06 19:15 | disposition home or self-care (01) | DRG 395 ==
LOC: ED 16:21
DX: Z43.1 Encounter for attention to gastrostomy (principal); I10 Essential (primary) hypertension; J44.9 Chronic obstructive pulmonary disease, unspecified; Z85.810 Personal history of malignant neoplasm of tongue; F17.210 Nicotine dependence, cigarettes, uncomplicated

== ENCOUNTER 2022-09-18 11:01 | Observation (INO) | payer MEDICAID ==
[~2022-09-18] VITALS: Ht 177.8 cm; Wt 50.0 kg
[2022-09-18] VITALS (17 sets, daily range): BP systolic 109–267; BP diastolic 71–239
[2022-09-18 11:44] LABS: EOS% 0.5 % (0-8); IMMATURE GRANULOCYTES 0.3 % (0.0-5.0); LYMPH% 14.3 % (15-41); MEAN CORPUSCULAR HGB CONC 32.1 g/dL CAL (32.0-36.0); MONO% 16.4 % (2-13); NEUT# 2.63 thou/uL (1.82-7.42); NEUT% 68.5 % (42-76); RED BLOOD COUNT 3.32 mill/uL (4.70-6.10); RED CELL DISTRI WIDTH 15.1 % (11.5-15.5)
[2022-09-18 12:01] LABS: HEMATOCRIT 35.2 % (39.0-50.0); HEMOGLOBIN 11.3 g/dl (14.0-18.0)
[2022-09-18 12:02] LABS: ALKALINE PHOSPHATASE 77 u/l (38-126); BUN 13 mg/dL (9-20); BUN/CREATININE RATIO 26 (12-20 (CALC)); CARBON DIOXIDE 29 mmol/l (22-30); CHLORIDE 102 mmol/l (95-108); CREATININE 0.5 mg/dL (0.7-1.3); GFR FOR AFR.AMER. > 60 ML/MIN (>=60 (CALC)); GFR OTHER RACES > 60 ML/MIN (>=60 (CALC)); POTASSIUM 3.2 mmol/l (3.5-5.1); SGOT/AST 34 u/l (17-59); TOTAL PROTEIN 5.3 g/dL (6.3-8.2)
[2022-09-18 12:19] LABS: ALBUMIN 2.6 g/dL (3.2-5.0); ANION GAP 6 (6-22 (CALC)); BILIRUBIN, TOTAL 1.2 mg/dL (0.2-1.3); SODIUM 134 mmol/l (137-146)
[2022-09-18 15:25] LABS: URINE BILIRUBIN - DIPSTICK NEGATIVE (NEGATIVE); URINE BLOOD DIPSTICK NEGATIVE (NEGATIVE); URINE COLOR YELLOW; URINE GLUCOSE - DIPSTICK NEGATIVE (NEGATIVE); URINE KETONE NEGATIVE (NEGATIVE); URINE LEUK ESTERASE NEGATIVE (NEGATIVE); URINE NITRITE - DIPSTICK NEGATIVE (Negative); URINE PROTEIN - DIPSTICK NEGATIVE (NEG-TRACE)
[2022-09-19] VITALS (7 sets, daily range): BP systolic 115–135; BP diastolic 73–82
[2022-09-20 04:00] VITALS: BP 134/84
[2022-09-20 04:28] VITALS: BP 134/84
[2022-09-20 05:10] LABS: HEMATOCRIT 31.5 % (39.0-50.0); HEMOGLOBIN 10.2 g/dl (14.0-18.0); MEAN CELL VOLUME 106.1 fL CALC (80.0-100.0); MEAN CORPUSCULAR HGB 34.3 pG CALC (26.0-32.0); MEAN CORPUSCULAR HGB CONC 32.4 g/dL CAL (32.0-36.0); RED BLOOD COUNT 2.97 mill/uL (4.70-6.10)
[2022-09-20 05:11] LABS: ALKALINE PHOSPHATASE 96 u/l (38-126); ANION GAP 4 (6-22 (CALC)); BUN 11 mg/dL (9-20); BUN/CREATININE RATIO 32 (12-20 (CALC)); CARBON DIOXIDE 28 mmol/l (22-30); CHLORIDE 104 mmol/l (95-108); CREATININE 0.4 mg/dL (0.7-1.3); GFR FOR AFR.AMER. > 60 ML/MIN (>=60 (CALC)); GFR OTHER RACES > 60 ML/MIN (>=60 (CALC)); MAGNESIUM 1.4 mg/dL (1.6-2.3); POTASSIUM 3.6 mmol/l (3.5-5.1); SGOT/AST 31 u/l (17-59); SODIUM 133 mmol/l (137-146)
[2022-09-20 05:20] LABS: BILIRUBIN, TOTAL 0.5 mg/dL (0.2-1.3); TOTAL PROTEIN 4.2 g/dL (6.3-8.2)
[2022-09-20 19:14] VITALS: BP 135/81
[2022-09-21 03:53] VITALS: BP 127/77
[2022-09-21 05:01] LABS: HEMATOCRIT 32.9 % (39.0-50.0); HEMOGLOBIN 10.8 g/dl (14.0-18.0); MEAN CELL VOLUME 105.1 fL CALC (80.0-100.0); MEAN CORPUSCULAR HGB 34.5 pG CALC (26.0-32.0); MEAN CORPUSCULAR HGB CONC 32.8 g/dL CAL (32.0-36.0); RED BLOOD COUNT 3.13 mill/uL (4.70-6.10); RED CELL DISTRI WIDTH 14.8 % (11.5-15.5)
[2022-09-21 05:20] LABS: ALBUMIN 2.2 g/dL (3.2-5.0); ALKALINE PHOSPHATASE 116 u/l (38-126); ANION GAP 4 (6-22 (CALC)); BILIRUBIN, TOTAL 0.4 mg/dL (0.2-1.3); BUN 11 mg/dL (9-20); BUN/CREATININE RATIO 33 (12-20 (CALC)); CARBON DIOXIDE 30 mmol/l (22-30); CHLORIDE 100 mmol/l (95-108); CREATININE 0.3 mg/dL (0.7-1.3); GFR FOR AFR.AMER. > 60 ML/MIN (>=60 (CALC)); GFR OTHER RACES > 60 ML/MIN (>=60 (CALC)); MAGNESIUM 1.6 mg/dL (1.6-2.3); POTASSIUM 3.8 mmol/l (3.5-5.1); SGOT/AST 35 u/l (17-59); SODIUM 130 mmol/l (137-146); TOTAL PROTEIN 4.4 g/dL (6.3-8.2)
[2022-09-21 07:54] VITALS: BP 126/84
[2022-09-21] MEDS ORDERED: MEDDOSEPAK PO (10:27)
[2022-09-21] MEDS ORDERED: OXYCODONE5 M1 PO (10:27)
== END 2022-09-21 12:25 | disposition home health service (06) ==
LOC: ED 11:01 → ED-I 15:10 → ED 16:22 → MS2 16:23
PROVIDERS: Family Medicine; ADMIT Internal Medicine; ATTEND Internal Medicine
DX: R62.7 Adult failure to thrive (principal); E43 Unspecified severe protein-calorie malnutrition; C02.9 Malignant neoplasm of tongue, unspecified; G89.3 Neoplasm related pain (acute) (chronic); D69.6 Thrombocytopenia, unspecified; E83.42 Hypomagnesemia; I10 Essential (primary) hypertension; J43.9 Emphysema, unspecified; F32.A Depression, unspecified; F10.10 Alcohol abuse, uncomplicated; F17.200 Nicotine dependence, unspecified, uncomplicated; Z93.1 Gastrostomy status
CPT/HCPCS: G0378; J1650; J3475; Q9967

== ENCOUNTER 2022-09-29 07:22 | Emergency (ER) | payer MEDICAID ==
[~2022-09-29] VITALS: Ht 177.8 cm; Wt 59.0 kg
[~2022-09-29 07:22] MED LIST changes: +OXYCODONE5 M1 PO
[2022-09-29 07:34] VITALS: BP 108/66
[2022-09-29 08:06] LABS: EOS% 0.2 % (0-8); HEMATOCRIT 29.5 % (39.0-50.0); HEMOGLOBIN 9.9 g/dl (14.0-18.0); IMMATURE GRANULOCYTES 0.4 % (0.0-5.0); LYMPH% 5.1 % (15-41); MEAN CELL VOLUME 102.4 fL CALC (80.0-100.0); MEAN CORPUSCULAR HGB 34.4 pG CALC (26.0-32.0); MEAN CORPUSCULAR HGB CONC 33.6 g/dL CAL (32.0-36.0); MONO% 15.5 % (2-13); NEUT# 3.86 thou/uL (1.82-7.42); NEUT% 78.8 % (42-76); RED BLOOD COUNT 2.88 mill/uL (4.70-6.10); RED CELL DISTRI WIDTH 14.9 % (11.5-15.5)
[2022-09-29 08:21] LABS: ALBUMIN 2.3 g/dL (3.2-5.0); ALKALINE PHOSPHATASE 137 u/l (38-126); ANION GAP 8 (6-22 (CALC)); BILIRUBIN, TOTAL 0.6 mg/dL (0.2-1.3); BUN 13 mg/dL (9-20); BUN/CREATININE RATIO 40 (12-20 (CALC)); CARBON DIOXIDE 34 mmol/l (22-30); CHLORIDE 85 mmol/l (95-108); CREATININE 0.3 mg/dL (0.7-1.3); GFR FOR AFR.AMER. > 60 ML/MIN (>=60 (CALC)); GFR OTHER RACES > 60 ML/MIN (>=60 (CALC)); LIPASE 82 u/l (23-300); POTASSIUM 3.5 mmol/l (3.5-5.1); SGOT/AST 37 u/l (17-59); SODIUM 123 mmol/l (137-146); TOTAL PROTEIN 4.5 g/dL (6.3-8.2)
[2022-09-29 10:06] VITALS: BP 95/60
[2022-09-29] MEDS ORDERED: ZOFRAN4 MG/TAB PO (10:28)
[2022-09-29 10:30] VITALS: BP 112/66
[2022-09-29 11:07] LABS: URINE BILIRUBIN - DIPSTICK NEGATIVE (NEGATIVE); URINE BLOOD DIPSTICK NEGATIVE (NEGATIVE); URINE COLOR YELLOW; URINE GLUCOSE - DIPSTICK NEGATIVE (NEGATIVE); URINE KETONE NEGATIVE (NEGATIVE); URINE LEUK ESTERASE NEGATIVE (NEGATIVE); URINE PROTEIN - DIPSTICK TRACE mg/dL (NEG-TRACE); URINE SPECIFIC GRAVITY 1.015
[2022-09-29 11:13] LABS: URINE NITRITE - DIPSTICK NEGATIVE (Negative)
[2022-09-29 11:22] VITALS: BP 112/66
[2022-09-30] MEDS ORDERED: K-TABS10 MEQ VT (11:33)
[2022-09-30] MEDS ORDERED: MAGNESIUM400 M1 VT (11:33)
== END 2022-09-29 11:24 | disposition left against medical advice (07) ==
LOC: ED 07:22
PROVIDERS: Family Medicine
DX: E87.1 Hypo-osmolality and hyponatremia (principal); C14.0 Malignant neoplasm of pharynx, unspecified; I10 Essential (primary) hypertension; F32.A Depression, unspecified; J44.9 Chronic obstructive pulmonary disease, unspecified; F17.210 Nicotine dependence, cigarettes, uncomplicated; Z53.29 Procedure and treatment not carried out because of patient's decision for other reasons

== ENCOUNTER 2022-09-29 11:59 | Inpatient (IN) | payer MEDICAID ==
[2022-09-29] VITALS (13 sets, daily range): BP systolic 88–104; BP diastolic 51–64
[~2022-09-29] VITALS: Ht 177.8 cm; Wt 59.0 kg
[~2022-09-29 11:59] MED LIST changes: +ZOFRAN4 MG/TAB PO
--- NOTE | 2022-09-29 12:33 | NUR ---
[id number] BROUGHT TO ROOM 14.
[2022-09-29 13:05] LABS: URINE BILIRUBIN - DIPSTICK NEGATIVE (NEGATIVE); URINE BLOOD DIPSTICK NEGATIVE (NEGATIVE); URINE COLOR YELLOW; URINE GLUCOSE - DIPSTICK NEGATIVE (NEGATIVE); URINE KETONE NEGATIVE (NEGATIVE); URINE LEUK ESTERASE NEGATIVE (NEGATIVE); URINE PROTEIN - DIPSTICK TRACE mg/dL (NEG-TRACE)
[2022-09-29 13:08] LABS: URINE NITRITE - DIPSTICK NEGATIVE (Negative)
[2022-09-29 13:09] LABS: EOS% 0.2 % (0-8); HEMATOCRIT 27.9 % (39.0-50.0); HEMOGLOBIN 9.3 g/dl (14.0-18.0); IMMATURE GRANULOCYTES 0.4 % (0.0-5.0); LYMPH% 7.1 % (15-41); MEAN CELL VOLUME 102.6 fL CALC (80.0-100.0); MEAN CORPUSCULAR HGB 34.2 pG CALC (26.0-32.0); MEAN CORPUSCULAR HGB CONC 33.3 g/dL CAL (32.0-36.0); MONO% 15.7 % (2-13); NEUT# 3.86 thou/uL (1.82-7.42); NEUT% 76.6 % (42-76); RED BLOOD COUNT 2.72 mill/uL (4.70-6.10); RED CELL DISTRI WIDTH 14.9 % (11.5-15.5)
[2022-09-29 13:22] LABS: ALBUMIN 2.3 g/dL (3.2-5.0); ALKALINE PHOSPHATASE 130 u/l (38-126); ANION GAP 5 (6-22 (CALC)); BILIRUBIN, TOTAL 0.6 mg/dL (0.2-1.3); BUN 12 mg/dL (9-20); BUN/CREATININE RATIO 36 (12-20 (CALC)); CARBON DIOXIDE 33 mmol/l (22-30); CHLORIDE 87 mmol/l (95-108); CREATININE 0.3 mg/dL (0.7-1.3); GFR FOR AFR.AMER. > 60 ML/MIN (>=60 (CALC)); GFR OTHER RACES > 60 ML/MIN (>=60 (CALC)); LIPASE 62 u/l (23-300); POTASSIUM 3.6 mmol/l (3.5-5.1); SGOT/AST 34 u/l (17-59); SODIUM 122 mmol/l (137-146); TOTAL PROTEIN 4.3 g/dL (6.3-8.2)
--- NOTE | 2022-09-29 14:30 | NUR ---
Reassessment of patient completed. No distress noted.
--- NOTE | 2022-09-29 15:45 | NUR ---
REPORT GIVEN TO NURSE HANSEN ON MS. PT GOING TO ROOM 279
--- NOTE | 2022-09-29 16:14 | NUR ---
PT TRANSPORTED TO FLOOR VIA WHEELCHAIR. PT IS ON TELE. NURSE WAS PRESENT TO RECEIVE TRANSFER OF CARE. PT HAS NO COMPLAINTS.
--- NOTE | 2022-09-29 16:42 | NUR ---
RECEIVE PATIENT FROM ER. REPORT FROM [facility] NURSE. PT ALERT AND ORIENTED X3. REFER NAUSEA AT THIS MOMENT. PATIENT IS EDUCATED ABOUD ADMISSION, MEDICATIONS AND NURSING PLAN FOR TODAY. PT REFER UNDERSTAND. SAFETY AND FALL PRECAUTIONS IN PLACE. CALL LIGHT WITHIN IN REACH.
--- NOTE | 2022-09-29 19:32 | NUR ---
BEDSIDE REPORT RECIVED FROM OFF GOING NURSE. PATIENT ALERT AND ORIENTED AND ABLE TO MAKE NEEDS KNOWN. DENIES PAIN OR DISCOMFORT AT THIS TIME. REVERSE ISOLATION PRECAUTIONS MAINTAINED. CALL LIGHT WITHIN REACH.
--- NOTE | 2022-09-29 22:13 | NUR ---
pt had a BP of 102/51 @2056. Elizabeth De La Cruz notified @2099.
--- NOTE | 2022-09-30 00:03 | NUR ---
PATIENT RESTING IN BED. DENIES PAIN OR DISCOMFORT AT THIS TIME. RESPIRATIONS EVEN AND UNLABORED. CALL LIGHT WITHIN REACH.
[2022-09-30 00:21] VITALS: BP 101/54
--- NOTE | 2022-09-30 03:11 | NUR ---
PATIENT ASLEEP IN BED. RESPIRATIONS EVEN AND UNLABORED ON ROOM AIR. SAFETY MEASURES MAINTAINED. CALL LIGHT WITHIN REACH.
[2022-09-30 05:54] LABS: BASO% 0.2 % (0-3); EOS% 0.2 % (0-8); HEMATOCRIT 25.5 % (39.0-50.0); HEMOGLOBIN 8.7 g/dl (14.0-18.0); IMMATURE GRANULOCYTES 0.4 % (0.0-5.0); LYMPH% 13.2 % (15-41); MEAN CELL VOLUME 102.8 fL CALC (80.0-100.0); MEAN CORPUSCULAR HGB 35.1 pG CALC (26.0-32.0); MEAN CORPUSCULAR HGB CONC 34.1 g/dL CAL (32.0-36.0); MONO% 14.5 % (2-13); NEUT# 3.41 thou/uL (1.82-7.42); NEUT% 71.5 % (42-76); RED BLOOD COUNT 2.48 mill/uL (4.70-6.10); RED CELL DISTRI WIDTH 15.1 % (11.5-15.5)
[2022-09-30 06:11] LABS: ALBUMIN 2.3 g/dL (3.2-5.0); ALKALINE PHOSPHATASE 104 u/l (38-126); ANION GAP 5 (6-22 (CALC)); BILIRUBIN, TOTAL 0.8 mg/dL (0.2-1.3); BUN 8 mg/dL (9-20); BUN/CREATININE RATIO 25 (12-20 (CALC)); CARBON DIOXIDE 30 mmol/l (22-30); CHLORIDE 91 mmol/l (95-108); CREATININE 0.3 mg/dL (0.7-1.3); GFR FOR AFR.AMER. > 60 ML/MIN (>=60 (CALC)); GFR OTHER RACES > 60 ML/MIN (>=60 (CALC)); MAGNESIUM 1.4 mg/dL (1.6-2.3); POTASSIUM 3.2 mmol/l (3.5-5.1); SGOT/AST 28 u/l (17-59); SODIUM 123 mmol/l (137-146); TOTAL PROTEIN 4.6 g/dL (6.3-8.2)
--- NOTE | 2022-09-30 06:31 | NUR ---
PATIENT AWAKE. RECEIVED TYLENOL FOR ELEVATED TEMPERATURE. DENIES PAIN OR DISCOMFORT. PATIENT REMAINS NPO. IV FLUIDS CONTINUE. CALL LIGHT WITHIN REACH.
[2022-09-30 07:31] VITALS: BP 108/69
[2022-09-30 07:40] VITALS: BP 108/69
--- NOTE | 2022-09-30 07:43 | NUR ---
BEDSIDE SHIFT REPORT, PT SLEEPING/RESTING IN LEFT SIDE-LYING POSITION, RESPONDS APPROPRIATELY TO VERBAL STIMULI, NO C/O PAIN AT THIS TIME, IVF INFUSING, TELE MONITOR IN PLACE, CALL PEDROZA IN REACH AND BED LOCKED IN LOWEST POSITION.
--- NOTE | 2022-09-30 11:10 | NUR ---
CONTACTED OPAL LIZARRAGA IN REFERENCE TO A NUTRITION CONSULT AT 1005 HRS.
[2022-09-30] MEDS ORDERED: MAGNESIUM400 M1 VT (11:33)
[2022-09-30] MEDS ORDERED: K-TABS10 MEQ VT (11:33)
[2022-09-30 11:57] VITALS: BP 113/69
--- NOTE | 2022-09-30 12:00 | NUR ---
PT TAKES CARE OF FEEDINGS INDEPENDENTLY, NURSE MONITORS INPUT AND OUTPUT.
--- NOTE | 2022-09-30 15:45 | NUR ---
Discharge instructions given. Patient verbalizes understanding of same. Discharged in stable condition via Wheelchair to Home with family. All belongings sent with pt.
== END 2022-09-30 15:45 | DRG 641 ==
LOC: ED 11:59 → ED-I 13:40 → ED 13:40 → MS2 14:27
PROVIDERS: Family Medicine; Nurse Practitioner Family; ADMIT Internal Medicine; ATTEND Internal Medicine
DX: E87.1 Hypo-osmolality and hyponatremia (principal); E86.0 Dehydration; I10 Essential (primary) hypertension; J44.9 Chronic obstructive pulmonary disease, unspecified; C02.9 Malignant neoplasm of tongue, unspecified; F10.10 Alcohol abuse, uncomplicated; F32.A Depression, unspecified; F17.200 Nicotine dependence, unspecified, uncomplicated; Z93.1 Gastrostomy status; Z79.899 Other long term (current) drug therapy
CPT/HCPCS: G0378; J3475

== ENCOUNTER 2022-10-09 11:02 | Emergency (ER) | payer MEDICAID ==
[2022-10-09] VITALS (10 sets, daily range): BP systolic 72–143; BP diastolic 50–100
[~2022-10-09] VITALS: Ht 177.8 cm; Wt 50.0 kg
[~2022-10-09 11:02] MED LIST changes: +K-TABS10 MEQ VT; +MAGNESIUM400 M1 VT
[2022-10-09 11:51] LABS: HEMATOCRIT 30.4 % (39.0-50.0); HEMOGLOBIN 9.3 g/dl (14.0-18.0); IMMATURE GRANULOCYTES 0.2 % (0.0-5.0); LYMPH% 12.7 % (15-41); MEAN CORPUSCULAR HGB 33.3 pG CALC (26.0-32.0); MEAN CORPUSCULAR HGB CONC 30.6 g/dL CAL (32.0-36.0); MONO% 6.4 % (2-13); NEUT# 9.24 thou/uL (1.82-7.42); NEUT% 80.7 % (42-76); RED BLOOD COUNT 2.79 mill/uL (4.70-6.10); RED CELL DISTRI WIDTH 15.3 % (11.5-15.5)
[2022-10-09 12:00] LABS: URINE BILIRUBIN - DIPSTICK NEGATIVE (NEGATIVE); URINE BLOOD DIPSTICK NEGATIVE (NEGATIVE); URINE COLOR YELLOW; URINE GLUCOSE - DIPSTICK NEGATIVE (NEGATIVE); URINE KETONE NEGATIVE (NEGATIVE); URINE LEUK ESTERASE NEGATIVE (NEGATIVE); URINE PROTEIN - DIPSTICK NEGATIVE (NEG-TRACE)
[2022-10-09 12:03] LABS: ALBUMIN 2.8 g/dL (3.2-5.0); ALKALINE PHOSPHATASE 122 u/l (38-126); ANION GAP 6 (6-22 (CALC)); BILIRUBIN, TOTAL 0.9 mg/dL (0.2-1.3); BUN 24 mg/dL (9-20); BUN/CREATININE RATIO 48 (12-20 (CALC)); CARBON DIOXIDE 36 mmol/l (22-30); CHLORIDE 95 mmol/l (95-108); CREATININE 0.5 mg/dL (0.7-1.3); ETHYL ALCOHOL 0 mg/dl (0-30); GFR FOR AFR.AMER. > 60 ML/MIN (>=60 (CALC)); GFR OTHER RACES > 60 ML/MIN (>=60 (CALC)); SGOT/AST 29 u/l (17-59); SODIUM 133 mmol/l (137-146); TOTAL PROTEIN 5.6 g/dL (6.3-8.2); URINE NITRITE - DIPSTICK NEGATIVE (Negative)
== END 2022-10-09 16:14 | disposition short-term general hospital (02) ==
LOC: ED 11:02
PROVIDERS: Family Medicine
DX: A41.9 Sepsis, unspecified organism (principal); I76 Septic arterial embolism; I26.90 Septic pulmonary embolism without acute cor pulmonale; R65.20 Severe sepsis without septic shock; J96.90 Respiratory failure, unspecified, unspecified whether with hypoxia or hypercapnia; I10 Essential (primary) hypertension; J44.9 Chronic obstructive pulmonary disease, unspecified; F32.A Depression, unspecified; Z85.810 Personal history of malignant neoplasm of tongue; Z93.1 Gastrostomy status
CPT/HCPCS: J1650; Q9967

== ENCOUNTER 2022-11-05 15:34 | Emergency (ER) | payer MEDICAID ==
[~2022-11-05] VITALS: Ht 177.8 cm; Wt 56.0 kg
[2022-11-05 15:44] VITALS: BP 105/69
[2022-11-05 16:23] LABS: BASO% 0.4 % (0-3); EOS% 0.6 % (0-8); HEMATOCRIT 30.8 % (39.0-50.0); HEMOGLOBIN 9.3 g/dl (14.0-18.0); IMMATURE GRANULOCYTES 0.4 % (0.0-5.0); LYMPH% 11.6 % (15-41); MEAN CELL VOLUME 107.7 fL CALC (80.0-100.0); MEAN CORPUSCULAR HGB 32.5 pG CALC (26.0-32.0); MEAN CORPUSCULAR HGB CONC 30.2 g/dL CAL (32.0-36.0); MONO% 13.2 % (2-13); NEUT% 73.8 % (42-76); RED BLOOD COUNT 2.86 mill/uL (4.70-6.10); RED CELL DISTRI WIDTH 21.6 % (11.5-15.5)
[2022-11-05 16:37] LABS: ANION GAP 8 (6-22 (CALC)); BUN 31 mg/dL (9-20); BUN/CREATININE RATIO 76 (12-20 (CALC)); C-REACTIVE PROTEIN 1.1 mg/dL (0-0.9); CARBON DIOXIDE 32 mmol/l (22-30); CHLORIDE 103 mmol/l (95-108); CREATININE 0.4 mg/dL (0.7-1.3); GFR FOR AFR.AMER. > 60 ML/MIN (>=60 (CALC)); GFR OTHER RACES > 60 ML/MIN (>=60 (CALC)); SGOT/AST 39 u/l (17-59); SODIUM 139 mmol/l (137-146)
[2022-11-05 16:46] LABS: ALKALINE PHOSPHATASE 200 u/l (38-126); BILIRUBIN, TOTAL 0.4 mg/dL (0.2-1.3)
[2022-11-05 17:16] LABS: URINE BILIRUBIN - DIPSTICK NEGATIVE (NEGATIVE); URINE BLOOD DIPSTICK NEGATIVE (NEGATIVE); URINE COLOR YELLOW; URINE GLUCOSE - DIPSTICK NEGATIVE (NEGATIVE); URINE KETONE NEGATIVE (NEGATIVE); URINE LEUK ESTERASE NEGATIVE (NEGATIVE); URINE NITRITE - DIPSTICK NEGATIVE (Negative); URINE PROTEIN - DIPSTICK NEGATIVE (NEG-TRACE); URINE SPECIFIC GRAVITY 1.015; URINE UROBILINOGEN - DIPSTICK 0.2 E.U./dL (0.2)
[2022-11-05] MEDS ORDERED: VIBRAMYCIN100 M2 PO (17:16)
[2022-11-05] MEDS ORDERED: ASPIRIN 81 LOW81 MG PO (17:16)
[2022-11-05 17:36] VITALS: BP 105/69
== END 2022-11-05 17:36 | disposition home or self-care (01) ==
LOC: ED 15:34
PROVIDERS: Nurse Practitioner
DX: L98.499 Non-pressure chronic ulcer of skin of other sites with unspecified severity (principal); I96 Gangrene, not elsewhere classified; C02.9 Malignant neoplasm of tongue, unspecified; I10 Essential (primary) hypertension; J44.9 Chronic obstructive pulmonary disease, unspecified; R19.04 Left lower quadrant abdominal swelling, mass and lump

== ENCOUNTER 2022-12-24 16:43 | Inpatient (IN) | payer MEDICAID ==
[~2022-12-24] VITALS: Ht 177.8 cm; Wt 67.0 kg
[2022-12-24] VITALS (9 sets, daily range): BP systolic 80–111; BP diastolic 47–71
[~2022-12-24 16:43] MED LIST changes: +ASPIRIN 81 LOW81 MG PO; +VIBRAMYCIN100 M2 PO
[2022-12-24 17:06] LABS: BASO% 0.4 % (0-3); EOS% 0.6 % (0-8); HEMATOCRIT 34.6 % (39.0-50.0); IMMATURE GRANULOCYTES 0.5 % (0.0-5.0); LYMPH% 18.8 % (15-41); MEAN CELL VOLUME 103.3 fL CALC (80.0-100.0); MEAN CORPUSCULAR HGB 33.7 pG CALC (26.0-32.0); MEAN CORPUSCULAR HGB CONC 32.7 g/dL CAL (32.0-36.0); MONO% 15.1 % (2-13); NEUT# 4.97 thou/uL (1.82-7.42); NEUT% 64.6 % (42-76); RED BLOOD COUNT 3.35 mill/uL (4.70-6.10); RED CELL DISTRI WIDTH 13.4 % (11.5-15.5)
[2022-12-24 17:08] LABS: HEMOGLOBIN 11.3 g/dl (14.0-18.0)
[2022-12-24 17:32] LABS: ALKALINE PHOSPHATASE 131 u/l (38-126); ANION GAP 11 (6-22 (CALC)); BILIRUBIN, TOTAL 0.6 mg/dL (0.2-1.3); BUN 34 mg/dL (9-20); BUN/CREATININE RATIO 62 (12-20 (CALC)); CALCULATED LDLCHOLESTEROL 54 mg/dL (62-129 (CALC)); CARBON DIOXIDE 27 mmol/l (22-30); CHLORIDE 97 mmol/l (95-108); CREATININE 0.5 mg/dL (0.7-1.3); GFR FOR AFR.AMER. > 60 ML/MIN (>=60 (CALC)); GFR OTHER RACES > 60 ML/MIN (>=60 (CALC)); HDL CHOLESTEROL 24 mg/dL (39.0-59.0); POTASSIUM 4.3 mmol/l (3.5-5.1); SGOT/AST 32 u/l (17-59); SODIUM 131 mmol/l (137-146); TOTAL CHOLESTEROL 96 mg/dl (0-199); TOTAL PROTEIN 7.1 g/dL (6.3-8.2); TOTAL TRIGLYCERIDES 92 mg/dl (0-149); VLDL CHOLESTROL 18 mg/dl (8-62 (CALC))
[2022-12-24 17:33] LABS: INTERNATIONAL NORMALIZED RATIO 1.2 RATIO (0.7-1.3); PROTHROMBIN TIME 11.3 SECONDS (9.0-12.5)
[2022-12-25 00:15] VITALS: BP 91/51
[2022-12-25 04:20] VITALS: BP 91/53
[2022-12-25 06:06] LABS: HEMATOCRIT 30.4 % (39.0-50.0); MEAN CELL VOLUME 103.1 fL CALC (80.0-100.0); MEAN CORPUSCULAR HGB 33.9 pG CALC (26.0-32.0); MEAN CORPUSCULAR HGB CONC 32.9 g/dL CAL (32.0-36.0); RED BLOOD COUNT 2.95 mill/uL (4.70-6.10); RED CELL DISTRI WIDTH 13.5 % (11.5-15.5)
[2022-12-25 06:25] LABS: ANION GAP 8 (6-22 (CALC)); BUN 26 mg/dL (9-20); BUN/CREATININE RATIO 51 (12-20 (CALC)); CALCULATED LDLCHOLESTEROL 42 mg/dL (62-129 (CALC)); CARBON DIOXIDE 29 mmol/l (22-30); CHLORIDE 100 mmol/l (95-108); CHOLESTEROL HDL RATIO 3.9 (<4.4 (CALC)); CREATININE 0.5 mg/dL (0.7-1.3); GFR FOR AFR.AMER. > 60 ML/MIN (>=60 (CALC)); GFR OTHER RACES > 60 ML/MIN (>=60 (CALC)); HDL CHOLESTEROL 22 mg/dL (39.0-59.0); MAGNESIUM 1.5 mg/dL (1.6-2.3); SODIUM 133 mmol/l (137-146); TOTAL CHOLESTEROL 84 mg/dl (0-199); TOTAL TRIGLYCERIDES 101 mg/dl (0-149); VLDL CHOLESTROL 20 mg/dl (8-62 (CALC))
[2022-12-25 07:58] VITALS: BP 102/65
[2022-12-25 12:17] VITALS: BP 107/56
[2022-12-25 16:02] VITALS: BP 98/53
[2022-12-25 19:08] VITALS: BP 102/53
[2022-12-26] VITALS (115 sets, daily range): BP systolic 46–261; BP diastolic 17–191
[2022-12-26 09:45] LABS: ALBUMIN 3.3 g/dL (3.2-5.0); ALKALINE PHOSPHATASE 113 u/l (38-126); ANION GAP 9 (6-22 (CALC)); BUN 20 mg/dL (9-20); BUN/CREATININE RATIO 46 (12-20 (CALC)); CARBON DIOXIDE 27 mmol/l (22-30); CHLORIDE 103 mmol/l (95-108); CREATININE 0.4 mg/dL (0.7-1.3); GFR FOR AFR.AMER. > 60 ML/MIN (>=60 (CALC)); GFR OTHER RACES > 60 ML/MIN (>=60 (CALC)); POTASSIUM 3.6 mmol/l (3.5-5.1); SGOT/AST 28 u/l (17-59); SODIUM 136 mmol/l (137-146); TOTAL PROTEIN 6.2 g/dL (6.3-8.2)
[2022-12-26 10:03] LABS: HEMATOCRIT 30.8 % (39.0-50.0); HEMOGLOBIN 10.1 g/dl (14.0-18.0); MEAN CELL VOLUME 104.8 fL CALC (80.0-100.0); MEAN CORPUSCULAR HGB 34.4 pG CALC (26.0-32.0); MEAN CORPUSCULAR HGB CONC 32.8 g/dL CAL (32.0-36.0); RED BLOOD COUNT 2.94 mill/uL (4.70-6.10); RED CELL DISTRI WIDTH 13.1 % (11.5-15.5)
[2022-12-26 10:32] LABS: BILIRUBIN, TOTAL 0.3 mg/dL (0.2-1.3)
[2022-12-26 19:50] LABS: HEMATOCRIT 34.6 % (39.0-50.0); HEMOGLOBIN 11.1 g/dl (14.0-18.0); MEAN CELL VOLUME 108.1 fL CALC (80.0-100.0); MEAN CORPUSCULAR HGB 34.7 pG CALC (26.0-32.0); MEAN CORPUSCULAR HGB CONC 32.1 g/dL CAL (32.0-36.0); RED BLOOD COUNT 3.2 mill/uL (4.70-6.10); RED CELL DISTRI WIDTH 13.2 % (11.5-15.5)
[2022-12-26 20:01] LABS: ALBUMIN 3.3 g/dL (3.2-5.0); ALKALINE PHOSPHATASE 93 u/l (38-126); ANION GAP 12 (6-22 (CALC)); BILIRUBIN, TOTAL 0.2 mg/dL (0.2-1.3); BUN 20 mg/dL (9-20); BUN/CREATININE RATIO 36 (12-20 (CALC)); CARBON DIOXIDE 26 mmol/l (22-30); CHLORIDE 105 mmol/l (95-108); CREATININE 0.5 mg/dL (0.7-1.3); GFR FOR AFR.AMER. > 60 ML/MIN (>=60 (CALC)); GFR OTHER RACES > 60 ML/MIN (>=60 (CALC)); POTASSIUM 4.2 mmol/l (3.5-5.1); SGOT/AST 27 u/l (17-59); SODIUM 138 mmol/l (137-146); TOTAL PROTEIN 6.1 g/dL (6.3-8.2)
[2022-12-26 21:35] LABS: ANION GAP 9 (6-22 (CALC)); BUN 20 mg/dL (9-20); BUN/CREATININE RATIO 36 (12-20 (CALC)); CARBON DIOXIDE 29 mmol/l (22-30); CHLORIDE 106 mmol/l (95-108); CREATININE 0.6 mg/dL (0.7-1.3); GFR FOR AFR.AMER. > 60 ML/MIN (>=60 (CALC)); GFR OTHER RACES > 60 ML/MIN (>=60 (CALC)); POTASSIUM 3.4 mmol/l (3.5-5.1); SODIUM 140 mmol/l (137-146)
[2022-12-27] VITALS (165 sets, daily range): BP systolic 31–185; BP diastolic 11–104
[2022-12-27 02:08] LABS: URINE BILIRUBIN - DIPSTICK Negative (NEGATIVE); URINE BLOOD DIPSTICK Large (NEGATIVE); URINE GLUCOSE - DIPSTICK Negative (NEGATIVE); URINE KETONE Negative (NEGATIVE); URINE LEUK ESTERASE Negative (NEGATIVE); URINE NITRITE - DIPSTICK Negative (Negative); URINE PROTEIN - DIPSTICK Trace mg/dL (NEG-TRACE); URINE SPECIFIC GRAVITY 1.025; URINE UROBILINOGEN - DIPSTICK 0.2 E.U./dL (0.2)
[2022-12-27 02:09] LABS: URINE COLOR Yellow
[2022-12-27 02:10] LABS: URINE RBC >100 RBC/hpf (0-5)
[2022-12-27 02:11] LABS: URINE BACTERIA FEW hpf; URINE EPITHELIAL CELLS FEW EPI/hpf (0-FEW)
[2022-12-27 06:06] LABS: BASO% 0.1 % (0-3); HEMATOCRIT 39.9 % (39.0-50.0); HEMOGLOBIN 12.8 g/dl (14.0-18.0); IMMATURE GRANULOCYTES 0.4 % (0.0-5.0); LYMPH% 4.6 % (15-41); MEAN CORPUSCULAR HGB CONC 32.1 g/dL CAL (32.0-36.0); MONO% 15.6 % (2-13); NEUT# 17.92 thou/uL (1.82-7.42); NEUT% 79.3 % (42-76); RED BLOOD COUNT 3.66 mill/uL (4.70-6.10); RED CELL DISTRI WIDTH 13.5 % (11.5-15.5)
[2022-12-27 06:22] LABS: ALBUMIN 2.9 g/dL (3.2-5.0); ALKALINE PHOSPHATASE 101 u/l (38-126); BUN 24 mg/dL (9-20); BUN/CREATININE RATIO 33 (12-20 (CALC)); CHLORIDE 108 mmol/l (95-108); CREATININE 0.7 mg/dL (0.7-1.3); GFR FOR AFR.AMER. > 60 ML/MIN (>=60 (CALC)); GFR OTHER RACES > 60 ML/MIN (>=60 (CALC)); POTASSIUM 3.4 mmol/l (3.5-5.1); SODIUM 142 mmol/l (137-146); TOTAL PROTEIN 5.7 g/dL (6.3-8.2)
[2022-12-27 06:33] LABS: ANION GAP 15 (6-22 (CALC)); BILIRUBIN, TOTAL 0.3 mg/dL (0.2-1.3); CARBON DIOXIDE 22 mmol/l (22-30); SGOT/AST 50 u/l (17-59)
== END 2022-12-27 10:57 | disposition expired | DRG 208 ==
LOC: ED 16:43 → ED-I 18:05 → ED 18:18 → MS2 18:19 → ICU 12-26 19:48
PROVIDERS: Nurse Practitioner; ADMIT Student in an Organized Health Care Education/Training Program; ATTEND Student in an Organized Health Care Education/Training Program
PROC: 0BH17EZ Insertion of Endotracheal Airway into Trachea, Via Natural or Artificial Opening (ICD-10-PCS; principal; 2022-12-26)
PROC: 5A1935Z Respiratory Ventilation, Less than 24 Consecutive Hours (ICD-10-PCS; 2022-12-26)
PROC: 0T9B70Z Drainage of Bladder with Drainage Device, Via Natural or Artificial Opening (ICD-10-PCS; 2022-12-26)
PROC: 5A12012 Performance of Cardiac Output, Single, Manual (ICD-10-PCS; 2022-12-26)
PROC: 3E033XZ Introduction of Vasopressor into Peripheral Vein, Percutaneous Approach (ICD-10-PCS; 2022-12-26)
DX: J69.0 Pneumonitis due to inhalation of food and vomit (principal); A41.9 Sepsis, unspecified organism; I26.90 Septic pulmonary embolism without acute cor pulmonale; J80 Acute respiratory distress syndrome; R65.21 Severe sepsis with septic shock; I63.9 Cerebral infarction, unspecified; I47.20 Ventricular tachycardia, unspecified; G81.94 Hemiplegia, unspecified affecting left nondominant side; I46.8 Cardiac arrest due to other underlying condition; R57.0 Cardiogenic shock; I95.9 Hypotension, unspecified; I10 Essential (primary) hypertension; R29.810 Facial weakness; R47.1 Dysarthria and anarthria; R29.707 NIHSS score 7; J44.9 Chronic obstructive pulmonary disease, unspecified; C14.0 Malignant neoplasm of pharynx, unspecified; F32.A Depression, unspecified; F10.20 Alcohol dependence, uncomplicated; F17.210 Nicotine dependence, cigarettes, uncomplicated; Z51.5 Encounter for palliative care; Z66 Do not resuscitate; Z95.828 Presence of other vascular implants and grafts; Z93.1 Gastrostomy status; Z90.49 Acquired absence of other specified parts of digestive tract; Z92.21 Personal history of antineoplastic chemotherapy; Z20.822 Contact with and (suspected) exposure to COVID-19
CPT/HCPCS: J1250; J1650; J2060; J3370; J3475